=== PATIENT | male | born 1960 | race Caucasian/White ===

== ENCOUNTER → 2023-11-28 19:04 | Outpatient (REF) | payer MEDICARE, BC, SELFPAY | LOC: MRI 3T 19:04 | PROVIDERS: ATTENDING PHYSICIAN Surgery; FAMILY PHYSICIAN Family Medicine | DX: R97.20 Elevated prostate specific antigen [PSA] (principal) | CPT/HCPCS: 72197; A9575 ==

== ENCOUNTER → 2024-06-23 08:07 | Outpatient (REF) | payer MEDICARE, BC, SELFPAY | LOC: HWRCS 08:07 | PROVIDERS: ATTENDING PHYSICIAN Internal Medicine Cardiovascular Disease; FAMILY PHYSICIAN Family Medicine | DX: I27.20 Pulmonary hypertension, unspecified (principal); I34.0 Nonrheumatic mitral (valve) insufficiency | CPT/HCPCS: 93306 ==

== ENCOUNTER → 2025-01-18 07:40 | Outpatient (REF) | payer MEDICARE, BC, SELFPAY | LOC: RSP 07:40 | PROVIDERS: ATTENDING PHYSICIAN Internal Medicine Rheumatology; FAMILY PHYSICIAN Family Medicine | DX: I27.20 Pulmonary hypertension, unspecified (principal); M34.1 CR(E)ST syndrome | CPT/HCPCS: 94727; 94729; 94010 ==

== ENCOUNTER → 2025-02-08 11:11 | Outpatient (REF) | payer MEDICARE, BC, SELFPAY | LOC: HWRAD 11:11 | PROVIDERS: ATTENDING PHYSICIAN Internal Medicine Rheumatology; FAMILY PHYSICIAN Family Medicine | DX: M34.9 Systemic sclerosis, unspecified (principal); I27.20 Pulmonary hypertension, unspecified | CPT/HCPCS: 71250 ==

== ENCOUNTER → 2025-03-16 14:53 | Outpatient (REF) | payer MEDICARE, BC, SELFPAY | LOC: MRI 3T 14:53 | PROVIDERS: ATTENDING PHYSICIAN Surgery; FAMILY PHYSICIAN Family Medicine | DX: R97.20 Elevated prostate specific antigen [PSA] (principal) | CPT/HCPCS: 72197; A9575 ==

== ENCOUNTER → 2025-06-14 10:43 | Outpatient (REF) | payer MEDICARE, BC, SELFPAY | LOC: HWRAD 10:43 | PROVIDERS: ATTENDING PHYSICIAN Internal Medicine Rheumatology; FAMILY PHYSICIAN Family Medicine | DX: I73.00 Raynaud's syndrome without gangrene (principal); L94.2 Calcinosis cutis; M34.9 Systemic sclerosis, unspecified | CPT/HCPCS: 73130 ==

== ENCOUNTER 2025-06-22 06:22 | Day surgery (SDC) | payer MEDICARE, BC, SELFPAY | END 2025-06-22 11:25 | disposition home or self-care (01) | LOC: GI 06:22 | PROVIDERS: ATTENDING PHYSICIAN Specialist | DX: K20.90 Esophagitis, unspecified without bleeding (principal); K22.89 Other specified disease of esophagus; R93.3 Abnormal findings on diagnostic imaging of other parts of digestive tract | CPT/HCPCS: 43239; 88305; 88342 ==

== ENCOUNTER → 2025-07-19 08:50 | Outpatient (REF) | payer MEDICARE, BC, SELFPAY | LOC: RCS 08:50 | PROVIDERS: ATTENDING PHYSICIAN Internal Medicine Cardiovascular Disease; FAMILY PHYSICIAN Family Medicine | DX: I27.20 Pulmonary hypertension, unspecified (principal); M34.9 Systemic sclerosis, unspecified; I25.10 Atherosclerotic heart disease of native coronary artery without angina pectoris | CPT/HCPCS: 93017; 93350 ==